=== PATIENT | female | born 1940 ===

== ENCOUNTER 2021-09-27 08:45 | Inpatient (IN) | payer OTHER ==
[~2021-09-27] VITALS: Ht 154.9 cm; Wt 63.5 kg
[2021-09-27] MEDS ORDERED: LIPITOR40 MG PO (13:14)
[2021-09-27] MEDS ORDERED: HUMULIN 70100 UNIT/2 SUBCUTANEO (13:14)
[2021-09-27] MEDS ORDERED: SEROQUEL50 MG PO (13:14)
[2021-09-27] MEDS ORDERED: TENORMIN50 M1 PO (13:14)
[2021-09-27] MEDS ORDERED: SYNTHROID125 MCG PO (13:15)
[2021-09-27] MEDS ORDERED: RESTORIL30 MG PO (13:15)
[2021-09-27] MEDS ORDERED: INTEGRA PLUS C1 EACH PO (13:16)
[2021-10-09] MEDS ORDERED: ULTRAM50 MG PO (16:31)
== END 2021-10-09 18:13 | disposition home or self-care (01) | DRG 331 ==
LOC: SURH 09-30 08:45 → O/R 10-04 05:49 → SURH 10-04 10:48
PROVIDERS: ADMIT Surgery; ATTEND Surgery
PROC: 07BB4ZZ Excision of Mesenteric Lymphatic, Percutaneous Endoscopic Approach (ICD-10-PCS; 2021-10-04)
PROC: 0DTL4ZZ Resection of Transverse Colon, Percutaneous Endoscopic Approach (ICD-10-PCS; principal; 2021-10-04 15:45)
DX: C18.2 Malignant neoplasm of ascending colon (principal); R59.0 Localized enlarged lymph nodes; D50.0 Iron deficiency anemia secondary to blood loss (chronic); Z20.822 Contact with and (suspected) exposure to COVID-19

== ENCOUNTER 2021-10-01 10:04 | Outpatient (CLI) | payer OTHER ==
[~2021-10-01 10:04] MED LIST: HUMULIN 70100 UNIT/2 SUBCUTANEO; INTEGRA PLUS C1 EACH PO; LIPITOR40 MG PO; RESTORIL30 MG PO; SEROQUEL50 MG PO; SYNTHROID125 MCG PO; TENORMIN50 M1 PO
== END 2021-10-01 10:09 | disposition home or self-care (01) ==
LOC: TOM 10:04
PROVIDERS: ATTEND Surgery
DX: C18.3 Malignant neoplasm of hepatic flexure (principal); R59.0 Localized enlarged lymph nodes; D50.0 Iron deficiency anemia secondary to blood loss (chronic)
CPT/HCPCS: 71260; 74177; Q9965